=== PATIENT | female | born 1990 | race African-American/Black ===

== ENCOUNTER 2019-06-08 17:35 | Emergency (ER) | payer MEDICAID ==
[~2019-06-08] VITALS: Ht 165.1 cm; Wt 100.0 kg
[2019-06-08 17:38] VITALS: BP 115/76
[2019-06-08] MEDS ORDERED: HYDROCODONE/ACETAMINOPHEN 5/325MG TABLET PO ONE (17:45)
== END 2019-06-08 19:21 | disposition home or self-care (01) ==
LOC: ER 17:35
DX: S80.01XA Contusion of right knee, initial encounter (principal); W01.0XXA Fall on same level from slipping, tripping and stumbling without subsequent striking against object, initial encounter; Y93.89 Activity, other specified; Y92.89 Other specified places as the place of occurrence of the external cause; Y99.8 Other external cause status
CPT/HCPCS: 73562; 99283; L1830